=== PATIENT | male | born 1985 | race Caucasian/White ===

== ENCOUNTER 2022-08-08 14:12 | Emergency (ER) | payer BC | END 2022-08-08 15:57 | disposition home or self-care (01) | LOC: MW.ED 14:12 | DX: R07.89 Other chest pain (principal); M62.838 Other muscle spasm; I10 Essential (primary) hypertension; Z91.013 Allergy to seafood; Z79.899 Other long term (current) drug therapy; Z72.0 Tobacco use | CPT/HCPCS: 99283 ==